=== PATIENT | male | born 1940 | race American Indian/Alaskan Native ===

== ENCOUNTER 2018-08-26 20:53 | Emergency (ER) | payer MEDICARE ==
[~2018-08-26 20:53] MED LIST: ADRENALIN ONE
--- NOTE | 2018-08-26 21:07 | Emergency Department Report ---
HPI - General Time Seen by Provider: 08/26/18 21:02 - HPI HPI: Room 2 The patient is a 77-year-old male presenting with chief complaint cardiac arrest. Per EMS the patient had been complaining of shortness of breath all day. Eventually family felt the patient unresponsive and EMS was called at approximately 20:00. In this state they arrived on scene at 20:28 to find the patient in PEA. The patient was intubated and ACLS protocols initiated. The patient then became asystolic and remained asystolic during transport to the ED. In the ED ACLS protocols were continued but there was no return of spontaneous circulation. Location: [See above] Duration: [See above] Quality: [See above] Severity: [See above] Modifying factors: [see above] Context: [see above] Mode of transportation: [not driving] ED Past Medical Hx - Past Medical History Additional medical history: "Breathing problems" - Surgical History Past Surgical History?: No - Family History Family history: no significant - Social History Smoking Status: Unknown if ever smoked ED Review of Systems ROS: Stated complaint: CARDIAC ARREST Other details as noted in HPI Comment: Unobtainable due to pts medical conditions Physical Exam - Physical Exam Physical Exam: GENERAL: The patient is well-developed well-nourished male lying on stretcher receiving chest compressions from EMS. [] HEENT: Normocephalic. Atraumatic. Pupils fixed and dilated NECK: Trachea midline CHEST/LUNGS: No spontaneous respirations. HEART/CARDIOVASCULAR: No heart sounds. Asystole on the monitor ABDOMEN: No breath sounds over the abdomen during bagging. There is no abdominal distention. SKIN: There is no rash. There is no edema. There is no diaphoresis. NEURO: GCS 3T MUSCULOSKELETAL: There is no evidence of acute injury. ED Medical Decision Making - Differential Diagnosis respiratory arrest Critical care attestation.: If time is entered above; I have spent that time in minutes in the direct care of this critically ill patient, excluding procedure time. ED Disposition Clinical Impression: Respiratory arrest Disposition: DC-20 Is pt being admited?: No Does the pt Need Aspirin: No Condition: Poor Time of Disposition: 21:02 (patient )
== END 2018-08-26 23:47 ==
LOC: ED 20:53
DX: R09.2 Respiratory arrest (principal)
CPT/HCPCS: 92950; 99285; J0171